=== PATIENT | female | born 1995 | race Caucasian/White ===

== ENCOUNTER 2017-08-09 16:30 | Inpatient (IN) | payer OTHER ==
[2017-08-09] MEDS: METHYLPREDNISOLONE 125 MG INJ IV ×2 (17:28→21:02)
[2017-08-09] MEDS: MAGNESIUM SULFATE 2 GM/50 ML 50 ML IVPB (17:30)
[2017-08-09] MEDS: LORAZEPAM 2 MG INJ IV (17:46)
[2017-08-09 17:49] LABS: AADO2 Arterial 534.4 mmHg (7.0-24.0); Allen Test ACCEPTAB; Arterial Base Excess -4.6 mmol/L (-3.0-3); Arterial Blood Gas Oxygen Sat 98.4 mmHG (95.0-98.0); Arterial COHb 0.3 % (0.0-3.0); Arterial Fraction of Oxyhgb 97.7 % (93.0-99.0); Arterial HCO3 21.1 mmol/L (22.0-26.0); Arterial MetHb 0.4 % (0.0-1.5); Arterial Total Hemglobin 14.3 g/dl (12.0-18.0); Arterial pCO2 41.6 mmhg (35-45); MODE MASK - NRB; Site Right Radial
[2017-08-09] MEDS ORDERED: ADENOSINE 2 ML (18:10)
[2017-08-09] MEDS: LEVALBUTEROL (NEB) 1.25 MG/0.5 ML AMP HHN (18:11)
[2017-08-09 18:15] LABS: ADD MAN DIFF? NO
[2017-08-09 18:17] LABS: WHITE BLOOD COUNT 15.6 10^3/ul (4.8-10.8)
[2017-08-09 18:17] LABS: BASOPHIL # 0.1 10^3/ul (0.0-0.1); BASOPHILS % 0.3 % (0.0-2.0); EOSINOPHILS % 0.2 % (0.0-7.0); HEMOGLOBIN 14.2 g/dl (12.0-16.0); LYMPHOCYTES # 1.3 10^3/ul (0.8-2.9); LYMPHOCYTES % 8.4 % (18.0-55.0); MEAN CORPUSCULAR HEMOGLOBIN 28.5 pg (29.0-33.0); MEAN CORPUSCULAR VOLUME 86.2 fl (72.0-104.0); MEAN PLATELET VOLUME 10.1 fl (7.4-10.4); MONOCYTE # 1.2 10^3/ul (0.3-0.9); MONOCYTES % 7.5 % (0.0-13.0); NEUTROPHILS % 83.3 % (30.0-74.0); PLATELET COUNT 269 10^3/UL (140-415); RED BLOOD COUNT 4.99 10^6/ul (4.20-5.40); RED CELL DISTRIBUTION WIDTH 13.1 % (11.5-14.5)
[2017-08-09] MEDS ORDERED: SOD CHLORIDE 0.9% 1,000 ML IV (18:18)
[2017-08-09] MEDS ORDERED: NACL 0.9% 3 ML SYG IV (18:30)
[2017-08-09] MEDS ORDERED: VANCOMYCIN IV PER PHARMACY XX (18:30)
[2017-08-09] MEDS ORDERED: IBUPROFEN 600 MG TAB PO (18:30)
[2017-08-09] MEDS ORDERED: HYDROCODONE/APAP (5/325) TAB PO (18:30)
[2017-08-09] MEDS ORDERED: ACETAMINOPHEN 650MG/20.3ML CUP PO (18:30)
[2017-08-09] MEDS ORDERED: LORAZEPAM 2 MG INJ IV (18:30)
[2017-08-09] MEDS: ADENOSINE 6 MG INJ IV (18:33)
[2017-08-09 18:41] LABS: ANION GAP 20 (8-16); BLOOD UREA NITROGEN 9 mg/dl (7-20); CALCIUM 9.6 mg/dl (8.4-10.2); CARBON DIOXIDE 23 mmol/L (21-31); CHLORIDE 104 mmol/L (97-110); CREATININE 0.44 mg/dl (0.44-1.00); GLUCOSE 90 mg/dl (70-220); POTASSIUM 4.6 mmol/L (3.5-5.1); SODIUM 142 mmol/L (135-144)
[2017-08-09 19:11] LABS: TROPONIN-I < 0.012 ng/ml (0.00-0.12)
[2017-08-09] MEDS: SOD CHLORIDE 0.9% 1,000 ML IV (19:11)
[2017-08-09 19:25] LABS: THYROID STIMULATING HORMONE < 0.015 MIU/L (0.465-4.680)
[2017-08-09 20:19] LABS: LACTIC ACID 0.9 mmol/L (0.5-2.0)
[2017-08-09] MEDS: VANCOMYCIN 1 GM 250 ML IVPB (20:44)
[2017-08-09] MEDS: ENOXAPARIN 40 MG/0.4 ML SYG SC (20:50)
[2017-08-09 20:54] LABS: D-DIMER > 220.00 ng/ml (<460)
[2017-08-09] MEDS: IPRATROPIUM (NEB) 0.5 MG/2.5 ML AMP HHN (21:22)
[2017-08-09] MEDS: LEVALBUTEROL (NEB) 0.63 MG/3 ML AMP HHN (21:22)
[2017-08-10] MEDS ORDERED: METHYLPREDNISOLONE 125 MG INJ IV
[2017-08-10] MEDS: LEVALBUTEROL (NEB) 0.63 MG/3 ML AMP HHN ×6 (01:14→20:44)
[2017-08-10] MEDS: IPRATROPIUM (NEB) 0.5 MG/2.5 ML AMP HHN ×6 (01:14→20:44)
[2017-08-10 01:58] LABS: TROPONIN-I < 0.012 ng/ml (0.00-0.12)
[2017-08-10] MEDS: PIPER-TAZO 3.375 GM IV (PMX) 100 ML IVPB ×2 (02:40→10:18)
[2017-08-10 04:42] LABS: AMPHETAMINE/METHAMPHETAMINE Negative (NEGATIVE); BARBITURATES Negative (NEGATIVE); BENZODIAZEPINES Negative (NEGATIVE); CANNABINOIDS Negative (NEGATIVE); COCAINE Negative (NEGATIVE)
[2017-08-10 04:53] LABS: OPIATES Negative (NEGATIVE)
[2017-08-10] MEDS: VANCOMYCIN 650 MG in DEXTROSE 5% 150 ML IVPB (05:43)
[2017-08-10] MEDS: PANTOPRAZOLE 40 MG INJ IV (05:44)
[2017-08-10] MEDS: METHYLPREDNISOLONE 125 MG INJ IV ×3 (05:44→22:12)
[2017-08-10 05:49] LABS: LACTIC ACID 0.8 mmol/L (0.5-2.0)
[2017-08-10 05:49] LABS: Allen Test ACCEPTAB; Arterial Base Excess -5.9 mmol/L (-3.0-3); Arterial COHb 0 % (0.0-3.0); Arterial Fraction of Oxyhgb 95.6 % (93.0-99.0); Arterial HCO3 17.7 mmol/L (22.0-26.0); Arterial MetHb 0.4 % (0.0-1.5); Arterial Total Hemglobin 13.4 g/dl (12.0-18.0); Arterial pCO2 29.7 mmhg (35-45); MODE NASAL CANNULA; Site Right Radial
[2017-08-10 05:53] LABS: TROPONIN-I < 0.012 ng/ml (0.00-0.12)
[2017-08-10 05:56] LABS: FREE T4 (FREE THYROXINE) 4.62 ng/dl (0.79-2.35)
[2017-08-10 06:22] LABS: THYROID STIMULATING HORMONE < 0.015 MIU/L (0.465-4.680)
[2017-08-10] MEDS: ENOXAPARIN 40 MG/0.4 ML SYG SC (08:54)
[2017-08-10] MEDS ORDERED: CEFTRIAXONE 1 GM/50 ML (PMX) 50 ML IVPB (11:00)
[2017-08-10] MEDS ORDERED: AZITHROMYCIN 500 MG in SOD CHLORIDE 0.9% 250 ML IVPB (12:00)
[2017-08-10] MEDS: METHIMAZOLE 5 MG TAB PO (14:38)
[2017-08-11] MEDS: IPRATROPIUM (NEB) 0.5 MG/2.5 ML AMP HHN ×6 (00:22→20:22)
[2017-08-11] MEDS: LEVALBUTEROL (NEB) 0.63 MG/3 ML AMP HHN ×6 (00:22→20:22)
[2017-08-11] MEDS: PANTOPRAZOLE 40 MG INJ IV (05:56)
[2017-08-11] MEDS: METHYLPREDNISOLONE 125 MG INJ IV ×3 (05:56→20:57)
[2017-08-11 06:17] LABS: ADD MAN DIFF? NO
[2017-08-11 06:22] LABS: ABNORMAL IP MESSAGE 1; HEMATOCRIT 35.1 % (37.0-47.0); HEMOGLOBIN 11.8 g/dl (12.0-16.0); LYMPHOCYTES # 0.5 10^3/ul (0.8-2.9); LYMPHOCYTES % 4.7 % (18.0-55.0); MEAN CORPUSCULAR HEMOGLOBIN 28.8 pg (29.0-33.0); MEAN CORPUSCULAR HGB CONC 33.6 g/dl (32.0-37.0); MEAN CORPUSCULAR VOLUME 85.6 fl (72.0-104.0); MEAN PLATELET VOLUME 10.4 fl (7.4-10.4); MONOCYTE # 0.3 10^3/ul (0.3-0.9); MONOCYTES % 2.7 % (0.0-13.0); NEUTROPHIL # 10.1 10^3/ul (1.6-7.5); NEUTROPHILS % 92.1 % (30.0-74.0); PLATELET COUNT 222 10^3/UL (140-415); RED CELL DISTRIBUTION WIDTH 13.3 % (11.5-14.5)
[2017-08-11 06:29] LABS: POSITIVE DIFF @See below
[2017-08-11 07:02] LABS: ANION GAP 12 (8-16); BLOOD UREA NITROGEN 15 mg/dl (7-20); CALCIUM 9.5 mg/dl (8.4-10.2); CARBON DIOXIDE 26 mmol/L (21-31); CHLORIDE 109 mmol/L (97-110); CREATININE 0.44 mg/dl (0.44-1.00); GLUCOSE 156 mg/dl (70-220); MAGNESIUM 2.2 mg/dl (1.7-2.5); PHOSPHORUS 3.9 mg/dl (2.5-4.9); POTASSIUM 4.4 mmol/L (3.5-5.1); SODIUM 143 mmol/L (135-144)
[2017-08-11] MEDS: METHIMAZOLE 5 MG TAB PO (07:59)
[2017-08-11] MEDS: ENOXAPARIN 40 MG/0.4 ML SYG SC (08:00)
[2017-08-11] MEDS ORDERED: CEFTRIAXONE 1 GM/50 ML (PMX) 50 ML IVPB (11:00)
[2017-08-11] MEDS: CEFTRIAXONE 1 GM/50 ML (PMX) 50 ML IVPB (11:43)
[2017-08-11] MEDS ORDERED: AZITHROMYCIN 500 MG in SOD CHLORIDE 0.9% 250 ML IVPB (12:00)
[2017-08-11] MEDS: AZITHROMYCIN 500 MG in SOD CHLORIDE 0.9% 250 ML IVPB (13:33)
[2017-08-11] MEDS: ONDANSETRON 4 MG INJ IV (14:26)
[2017-08-12] MEDS: LEVALBUTEROL (NEB) 0.63 MG/3 ML AMP HHN ×6 (00:35→20:28)
[2017-08-12] MEDS: IPRATROPIUM (NEB) 0.5 MG/2.5 ML AMP HHN ×6 (00:35→20:28)
[2017-08-12] MEDS: METHYLPREDNISOLONE 125 MG INJ IV ×3 (05:43→21:57)
[2017-08-12] MEDS: PANTOPRAZOLE 40 MG INJ IV (05:43)
[2017-08-12] MEDS: METHIMAZOLE 5 MG TAB PO (05:49)
[2017-08-12 06:21] LABS: ADD MAN DIFF? NO
[2017-08-12 06:25] LABS: WHITE BLOOD COUNT 6.4 10^3/ul (4.8-10.8)
[2017-08-12 06:25] LABS: ABNORMAL IP MESSAGE 1; BASOPHILS % 0.2 % (0.0-2.0); HEMATOCRIT 33.9 % (37.0-47.0); HEMOGLOBIN 11.2 g/dl (12.0-16.0); LYMPHOCYTES # 0.5 10^3/ul (0.8-2.9); LYMPHOCYTES % 7.8 % (18.0-55.0); MEAN CORPUSCULAR HEMOGLOBIN 28.6 pg (29.0-33.0); MEAN CORPUSCULAR VOLUME 86.7 fl (72.0-104.0); MEAN PLATELET VOLUME 10.4 fl (7.4-10.4); MONOCYTE # 0.2 10^3/ul (0.3-0.9); NEUTROPHIL # 5.7 10^3/ul (1.6-7.5); NEUTROPHILS % 88.5 % (30.0-74.0); PLATELET COUNT 214 10^3/UL (140-415); RED BLOOD COUNT 3.91 10^6/ul (4.20-5.40); RED CELL DISTRIBUTION WIDTH 13.2 % (11.5-14.5)
[2017-08-12 06:31] LABS: POSITIVE DIFF @See below
[2017-08-12] MEDS: AZITHROMYCIN 500 MG in SOD CHLORIDE 0.9% 250 ML IVPB (10:02)
[2017-08-12] MEDS: CEFTRIAXONE 1 GM/50 ML (PMX) 50 ML IVPB (10:02)
[2017-08-12] MEDS: MONTELUKAST 10 MG TAB PO (13:56)
[2017-08-13] MEDS: IPRATROPIUM (NEB) 0.5 MG/2.5 ML AMP HHN ×6 (01:27→20:11)
[2017-08-13] MEDS: LEVALBUTEROL (NEB) 0.63 MG/3 ML AMP HHN ×6 (01:27→20:11)
[2017-08-13 05:20] LABS: ADD MAN DIFF? NO
[2017-08-13 05:33] LABS: BASOPHILS % 0.2 % (0.0-2.0); HEMATOCRIT 35.6 % (37.0-47.0); HEMOGLOBIN 11.8 g/dl (12.0-16.0); LYMPHOCYTES # 0.6 10^3/ul (0.8-2.9); LYMPHOCYTES % 12.9 % (18.0-55.0); MEAN CORPUSCULAR HEMOGLOBIN 28.6 pg (29.0-33.0); MEAN CORPUSCULAR HGB CONC 33.1 g/dl (32.0-37.0); MEAN CORPUSCULAR VOLUME 86.4 fl (72.0-104.0); MEAN PLATELET VOLUME 10.2 fl (7.4-10.4); MONOCYTE # 0.2 10^3/ul (0.3-0.9); MONOCYTES % 3.5 % (0.0-13.0); NEUTROPHILS % 82.6 % (30.0-74.0); PLATELET COUNT 228 10^3/UL (140-415); RED BLOOD COUNT 4.12 10^6/ul (4.20-5.40); RED CELL DISTRIBUTION WIDTH 12.6 % (11.5-14.5)
[2017-08-13 05:33] LABS: WHITE BLOOD COUNT 4.8 10^3/ul (4.8-10.8)
[2017-08-13 06:11] LABS: ANION GAP 12 (8-16); BLOOD UREA NITROGEN 13 mg/dl (7-20); CALCIUM 9.1 mg/dl (8.4-10.2); CARBON DIOXIDE 28 mmol/L (21-31); CHLORIDE 107 mmol/L (97-110); CREATININE 0.42 mg/dl (0.44-1.00); GLUCOSE 153 mg/dl (70-220); MAGNESIUM 2.2 mg/dl (1.7-2.5); PHOSPHORUS 3.7 mg/dl (2.5-4.9); POTASSIUM 3.9 mmol/L (3.5-5.1); SODIUM 143 mmol/L (135-144)
[2017-08-13] MEDS: METHIMAZOLE 5 MG TAB PO (06:16)
[2017-08-13] MEDS: METHYLPREDNISOLONE 125 MG INJ IV ×3 (06:16→21:01)
[2017-08-13] MEDS: PANTOPRAZOLE 40 MG INJ IV (06:16)
[2017-08-13] MEDS: SALMETEROL/FLUTICASONE 250/50 INHA INH ×2 (09:48→21:02)
[2017-08-13] MEDS: AZITHROMYCIN 500 MG in SOD CHLORIDE 0.9% 250 ML IVPB (09:49)
[2017-08-13] MEDS: CEFTRIAXONE 1 GM/50 ML (PMX) 50 ML IVPB (10:56)
[2017-08-13] MEDS: SOD FERRIC GLUC COMPLX 125 MG in SOD CHLORIDE 0.9% 100 ML IVPB (17:27)
[2017-08-13] MEDS: MONTELUKAST 10 MG TAB PO (21:02)
[2017-08-14] MEDS: LEVALBUTEROL (NEB) 0.63 MG/3 ML AMP HHN ×6 (00:15→20:58)
[2017-08-14] MEDS: IPRATROPIUM (NEB) 0.5 MG/2.5 ML AMP HHN ×6 (00:15→20:58)
[2017-08-14 04:48] LABS: ADD MAN DIFF? NO
[2017-08-14 04:51] LABS: ABNORMAL IP MESSAGE 1; BASOPHILS % 0.2 % (0.0-2.0); HEMATOCRIT 39.6 % (37.0-47.0); HEMOGLOBIN 13.2 g/dl (12.0-16.0); LYMPHOCYTES # 0.6 10^3/ul (0.8-2.9); LYMPHOCYTES % 10.1 % (18.0-55.0); MEAN CORPUSCULAR HEMOGLOBIN 28.6 pg (29.0-33.0); MEAN CORPUSCULAR HGB CONC 33.3 g/dl (32.0-37.0); MEAN CORPUSCULAR VOLUME 85.9 fl (72.0-104.0); MEAN PLATELET VOLUME 10.1 fl (7.4-10.4); MONOCYTE # 0.3 10^3/ul (0.3-0.9); MONOCYTES % 4.5 % (0.0-13.0); NEUTROPHIL # 4.6 10^3/ul (1.6-7.5); NEUTROPHILS % 83.6 % (30.0-74.0); PLATELET COUNT 264 10^3/UL (140-415); RED BLOOD COUNT 4.61 10^6/ul (4.20-5.40); RED CELL DISTRIBUTION WIDTH 12.3 % (11.5-14.5)
[2017-08-14 04:51] LABS: WHITE BLOOD COUNT 5.5 10^3/ul (4.8-10.8)
[2017-08-14 05:24] LABS: POSITIVE DIFF @See below
[2017-08-14] MEDS: PANTOPRAZOLE (EC) 40 MG TAB PO (05:58)
[2017-08-14] MEDS: METHYLPREDNISOLONE 125 MG INJ IV ×3 (05:58→21:02)
[2017-08-14] MEDS: SALMETEROL/FLUTICASONE 250/50 INHA INH ×2 (10:06→21:02)
[2017-08-14] MEDS: METHIMAZOLE 5 MG TAB PO (10:06)
[2017-08-14] MEDS: AZITHROMYCIN 500 MG in SOD CHLORIDE 0.9% 250 ML IVPB (10:06)
[2017-08-14] MEDS: CEFTRIAXONE 1 GM/50 ML (PMX) 50 ML IVPB (11:40)
[2017-08-14] MEDS: SOD FERRIC GLUC COMPLX 125 MG in SOD CHLORIDE 0.9% 100 ML IVPB (17:15)
[2017-08-14] MEDS ORDERED: MONTELUKAST 10 MG TAB PO (21:00)
[2017-08-14] MEDS: MONTELUKAST 10 MG TAB PO (21:02)
[2017-08-15] MEDS: IPRATROPIUM (NEB) 0.5 MG/2.5 ML AMP HHN ×6 (00:02→20:39)
[2017-08-15] MEDS: LEVALBUTEROL (NEB) 0.63 MG/3 ML AMP HHN ×6 (00:02→20:39)
[2017-08-15] MEDS: PANTOPRAZOLE (EC) 40 MG TAB PO (06:11)
[2017-08-15] MEDS: SALMETEROL/FLUTICASONE 250/50 INHA INH ×2 (08:29→21:30)
[2017-08-15] MEDS: AZITHROMYCIN 500 MG in SOD CHLORIDE 0.9% 250 ML IVPB (08:29)
[2017-08-15] MEDS: METHIMAZOLE 5 MG TAB PO (08:29)
[2017-08-15] MEDS: METHYLPREDNISOLONE 125 MG INJ IV (08:29)
[2017-08-15] MEDS: METHYLPREDNISOLONE 40 MG INJ IV (21:30)
[2017-08-15] MEDS: MONTELUKAST 10 MG TAB PO (21:31)
[2017-08-16] MEDS: LEVALBUTEROL (NEB) 0.63 MG/3 ML AMP HHN ×6 (00:51→20:52)
[2017-08-16] MEDS: IPRATROPIUM (NEB) 0.5 MG/2.5 ML AMP HHN ×6 (00:51→20:53)
[2017-08-16] MEDS: PANTOPRAZOLE (EC) 40 MG TAB PO (06:29)
[2017-08-16] MEDS: AZITHROMYCIN 500 MG in SOD CHLORIDE 0.9% 250 ML IVPB (08:35)
[2017-08-16] MEDS: METHIMAZOLE 5 MG TAB PO (08:35)
[2017-08-16] MEDS: SALMETEROL/FLUTICASONE 250/50 INHA INH ×2 (08:35→20:36)
[2017-08-16] MEDS: METHYLPREDNISOLONE 40 MG INJ IV ×2 (08:36→20:36)
[2017-08-16] MEDS: MONTELUKAST 10 MG TAB PO (20:36)
[2017-08-17] MEDS: LEVALBUTEROL (NEB) 0.63 MG/3 ML AMP HHN ×6 (00:37→20:31)
[2017-08-17] MEDS: IPRATROPIUM (NEB) 0.5 MG/2.5 ML AMP HHN ×6 (00:37→20:31)
[2017-08-17] MEDS: PANTOPRAZOLE (EC) 40 MG TAB PO (05:44)
[2017-08-17] MEDS: METHYLPREDNISOLONE 40 MG INJ IV (08:23)
[2017-08-17] MEDS: METHIMAZOLE 5 MG TAB PO (08:23)
[2017-08-17] MEDS: SALMETEROL/FLUTICASONE 250/50 INHA INH ×2 (08:23→20:53)
[2017-08-17] MEDS: AZITHROMYCIN 500 MG in SOD CHLORIDE 0.9% 250 ML IVPB (08:24)
[2017-08-17] MEDS: METOPROLOL 25 MG TAB PO (17:26)
[2017-08-17] MEDS: MONTELUKAST 10 MG TAB PO (20:53)
[2017-08-18] MEDS: LEVALBUTEROL (NEB) 0.63 MG/3 ML AMP HHN ×3 (01:28→09:21)
[2017-08-18] MEDS: IPRATROPIUM (NEB) 0.5 MG/2.5 ML AMP HHN ×3 (01:29→09:21)
[2017-08-18] MEDS: PANTOPRAZOLE (EC) 40 MG TAB PO (06:29)
[2017-08-18] MEDS: METHIMAZOLE 5 MG TAB PO (06:31)
[2017-08-18] MEDS: predniSONE 20 MG TAB PO (08:31)
[2017-08-18] MEDS: SALMETEROL/FLUTICASONE 250/50 INHA INH (08:31)
[2017-08-18] MEDS: METOPROLOL 25 MG TAB PO (08:31)
== END 2017-08-18 12:45 | disposition home or self-care (01) | DRG 202 ==
LOC: MS4 08-14 06:43 → ICU 18:20
DX: J45.902 Unspecified asthma with status asthmaticus (principal); J96.91 Respiratory failure, unspecified with hypoxia; E05.90 Thyrotoxicosis, unspecified without thyrotoxic crisis or storm; R00.0 Tachycardia, unspecified; R09.02 Hypoxemia; D72.829 Elevated white blood cell count, unspecified; J20.9 Acute bronchitis, unspecified
CPT/HCPCS: 36600; 71045; 80048; 80307; 82803; 83605; 83735; 84100; 84439; 84443; 84484; 84703; 85025; 85378; 87081; 93306; 94640; 94664